=== PATIENT | female | born 1950 | race Hispanic/Latino ===

== ENCOUNTER 2021-01-19 07:43 | Day surgery (SDC) | payer MEDICARE ==
[2021-01-14 12:22] LABS: BASOPHILS % (AUTO) 0.4 % (0.0-5.0); EOSINOPHILS % (AUTO) 2.1 % (0.0-8.0); HEMATOCRIT 43.3 % (36-48); LYMPHOCYTES % (AUTO) 20.9 % (21.0-51.0); MEAN CORPUSCULAR HEMOGLOBIN 29.5 pg (27.0-33.0); MEAN CORPUSCULAR HGB CONC 32.8 g/dL (32.0-36.0); MEAN CORPUSCULAR VOLUME 89.8 fL (79-99); MONOCYTES % (AUTO) 7.9 % (3.0-13.0); NEUTROPHILS % (AUTO) 68.3 % (40.0-77.0); PLATELET COUNT (AUTO) 192 K/uL (130-400); RED BLOOD CELL COUNT(AUTO) 4.82 MIL/uL (4.00-5.50); RED CELL DISTRIBUTION WIDTH 12.6 % (11.0-15.5); WHITE BLOOD COUNT (AUTO) 4.7 K/uL (4.8-10.8)
[2021-01-14 12:39] LABS: ALBUMIN 3.9 g/dL (3.5-5.0); BILIRUBIN,TOTAL 0.7 mg/dL (0.2-1.0); CREATININE 0.8 mg/dL (0.5-1.5); POTASSIUM 4.1 mmol/L (3.5-5.1); TOTAL PROTEIN, SERUM 7.6 g/dL (6.0-8.3)
[2021-01-14 12:47] LABS: PROTHROMBIN TIME 10.9 SEC (9.6-11.6)
[2021-01-16 09:28] VITALS: BP 166/60
[~2021-01-19] VITALS: Ht 149.9 cm; Wt 68.7 kg
[2021-01-19] VITALS (19 sets, daily range): BP systolic 102–166; BP diastolic 58–91
[~2021-01-19 07:43] MED LIST: 0.9%NACL 1000ML 1,000 ML IV SCH; CELE200 PO; CLOP75TA14 PO; METO-409 PO; TELM40TA8 PO
[2021-01-19] MEDS ORDERED: LACTATED RINGERS 1000ML 1,000 ML IV ONE (08:48)
[2021-01-19] MEDS: CEFAZOLIN SODIUM 1 GM VIAL ONE ×2 (09:42→10:54)
[2021-01-19] MEDS ORDERED: DEXAMETHASONE SOD PHOSPHATE 10MG/ML 1ML VIAL ONE (10:29)
[2021-01-19] MEDS ORDERED: SUCCINYLCHOLINE 200MG/10ML SYR ONE ×2 (10:29→10:32)
[2021-01-19] MEDS ORDERED: PROPOFOL 10 MG/ML 20ML VIAL IV ONE (10:29)
[2021-01-19] MEDS ORDERED: LIDOCAINE PF 100MG/5ML (2%) SYRINGE 5ML ONE (10:29)
[2021-01-19] MEDS ORDERED: MIDAZOLAM HCL 1 MG/ML 2ML VIAL ONE (10:29)
[2021-01-19] MEDS ORDERED: FENTANYL CITRATE PF 50 MCG/1 ML 2ML VIAL ONE (10:30)
[2021-01-19] MEDS ORDERED: ONDANSETRON 4MG INJ ONE (10:30)
[2021-01-19] MEDS ORDERED: MEPERIDINE-PF 25 MG/ML SYG ONE (10:32)
[2021-01-19] MEDS ORDERED: BUPIVACAINE/PF 0.25% 30ML VIAL IJ ONE (10:37)
[2021-01-19] MEDS ORDERED: EPHEDRINE SULFATE 50 MG/ML AMPULE ONE (11:05)
[2021-01-19] MEDS ORDERED: ESMOLOL HCL 10 MG/ML 10 ML VIAL ONE (11:22)
[2021-01-30] MEDS ORDERED: CEFAZOLIN SODIUM 1 GM VIAL IVP SCH (06:00)
[2021-08-18] MEDS ORDERED: PYRI-12 PO (16:07)
[2021-08-18] MEDS ORDERED: GABA-529 PO (16:07)
[2021-08-18] MEDS ORDERED: METO100T14 PO (16:07)
[2021-08-18] MEDS ORDERED: CLOP75TA14 PO (16:07)
== END 2021-01-19 14:20 | disposition home or self-care (01) ==
LOC: DAH 07:43
PROVIDERS: ATTEND Student in an Organized Health Care Education/Training Program
DX: C50.911 Malignant neoplasm of unspecified site of right female breast (principal); Z20.822 Contact with and (suspected) exposure to COVID-19; I25.10 Atherosclerotic heart disease of native coronary artery without angina pectoris; I10 Essential (primary) hypertension; Z98.890 Other specified postprocedural states; Z85.3 Personal history of malignant neoplasm of breast; Z82.49 Family history of ischemic heart disease and other diseases of the circulatory system; Z83.3 Family history of diabetes mellitus; Z80.8 Family history of malignant neoplasm of other organs or systems; Z88.3 Allergy status to other anti-infective agents; Z90.710 Acquired absence of both cervix and uterus; Z79.01 Long term (current) use of anticoagulants
CPT/HCPCS: 36415; 36561; 71045 ×2; 77001; 80053; 85025; 85610; 85730; 93005; A4215 ×2; A4216; A4221 ×2; A4222 ×2; A4223 ×4; A4606 ×2; A4663 ×2; A4930 ×2; A6207; A6258; A6260; A6402; C1788; C9803; G0168; J0330 ×2; J0690; J1100; J1644; J2001; J2175; J2250; J2405; J2704; J3010; J3490 ×3; J7120 ×2; U0003; 77002

== ENCOUNTER 2021-08-19 06:08 | Observation (INO) | payer MEDICARE ==
[2021-08-17 12:57] LABS: BASOPHILS % (AUTO) 0.6 % (0.0-5.0); EOSINOPHILS % (AUTO) 3.9 % (0.0-8.0); HEMATOCRIT 35.8 % (36-48); LYMPHOCYTES % (AUTO) 22.4 % (21.0-51.0); MEAN CORPUSCULAR HEMOGLOBIN 31.3 pg (27.0-33.0); MEAN CORPUSCULAR HGB CONC 32.1 g/dL (32.0-36.0); MEAN CORPUSCULAR VOLUME 97.5 fL (79-99); MONOCYTES % (AUTO) 8.3 % (3.0-13.0); NEUTROPHILS % (AUTO) 64.4 % (40.0-77.0); PLATELET COUNT (AUTO) 214 K/uL (130-400); RED BLOOD CELL COUNT(AUTO) 3.67 MIL/uL (4.00-5.50); RED CELL DISTRIBUTION WIDTH 13.6 % (11.0-15.5); WHITE BLOOD COUNT (AUTO) 5.4 K/uL (4.8-10.8)
[2021-08-17 13:07] LABS: ALBUMIN 3.6 g/dL (3.5-5.0); BILIRUBIN,TOTAL 0.6 mg/dL (0.2-1.0); CREATININE 0.6 mg/dL (0.5-1.5); POTASSIUM 4.3 mmol/L (3.5-5.1); TOTAL PROTEIN, SERUM 6.9 g/dL (6.0-8.3)
[2021-08-17 13:14] LABS: PROTHROMBIN TIME 10.9 SEC (9.6-11.6)
[2021-08-17 13:16] LABS: PARTIAL THROMBOPLASTIN TIME 24.4 SEC (26.3-35.5)
[2021-08-18 15:52] VITALS: BP 177/68
[2021-08-19] VITALS (19 sets, daily range): BP systolic 73–120; BP diastolic 33–80
[~2021-08-19] VITALS: Ht 149.9 cm; Wt 65.0 kg
[~2021-08-19 06:08] MED LIST changes: +CEFAZOLIN SODIUM 1 GM VIAL IVP SCH; -CELE200 PO; +GABA-529 PO; +METO100T14 PO; +PYRI-12 PO; -TELM40TA8 PO
[2021-08-19] MEDS ORDERED: CEFAZOLIN SODIUM 1 GM VIAL ONE (07:20)
[2021-08-19] MEDS ORDERED: LACTATED RINGERS 1000ML 1,000 ML IV ONE (07:20)
[2021-08-19] MEDS ORDERED: ROPIVACAINE 0.5% 5MG/ML 30ML IJ ONE (13:44)
[2021-08-19] MEDS ORDERED: KETAMINE 50MG/ML SYRINGE 50 MG/ML DISP.SYRIN IV ONE (13:45)
[2021-08-19] MEDS ORDERED: SUCCINYLCHOLINE 200MG/10ML SYR ONE (13:47)
[2021-08-19] MEDS ORDERED: PROPOFOL 10 MG/ML 20ML VIAL IV ONE (13:47)
[2021-08-19] MEDS ORDERED: FENTANYL CITRATE PF 50 MCG/1 ML 2ML VIAL ONE (13:47)
[2021-08-19] MEDS ORDERED: MIDAZOLAM HCL 1 MG/ML 2ML VIAL ONE (13:48)
[2021-08-19] MEDS ORDERED: GLYCOPYRROLATE 1 MG/5 ML SYRINGE ONE (14:42)
[2021-08-19] MEDS ORDERED: MEPERIDINE-PF 25 MG/ML SYG ONE ×2 (17:15→17:21)
[2021-08-19] MEDS: TRAMADOL HCL 50 MG TABLET PO SCH (19:54)
[2021-08-19] MEDS: PYRIDOXINE HCL 50 MG TABLET PO SCH (20:47)
[2021-08-19] MEDS: GABAPENTIN 100 MG CAPSULE PO SCH (20:47)
[2021-08-20] MEDS: TRAMADOL HCL 50 MG TABLET PO SCH ×3 (01:30→13:58)
[2021-08-20 02:45] VITALS: BP 89/63
[2021-08-20 04:44] LABS: HEMATOCRIT 32.1 % (36-48); MEAN CORPUSCULAR HEMOGLOBIN 30.7 pg (27.0-33.0); MEAN CORPUSCULAR HGB CONC 32.4 g/dL (32.0-36.0); MEAN CORPUSCULAR VOLUME 94.7 fL (79-99); RED BLOOD CELL COUNT(AUTO) 3.39 MIL/uL (4.00-5.50); RED CELL DISTRIBUTION WIDTH 13.3 % (11.0-15.5); WHITE BLOOD COUNT (AUTO) 7.7 K/uL (4.8-10.8)
[2021-08-20 04:57] LABS: CREATININE 0.6 mg/dL (0.5-1.5); POTASSIUM 3.9 mmol/L (3.5-5.1)
[2021-08-20 07:38] VITALS: BP 101/65
[2021-08-20] MEDS: GABAPENTIN 100 MG CAPSULE PO SCH ×2 (08:26→13:58)
[2021-08-20] MEDS: PYRIDOXINE HCL 50 MG TABLET PO SCH ×2 (08:26→13:58)
[2021-08-20] MEDS ORDERED: CLOPIDOGREL 75MG TAB PO SCH (09:00)
[2021-08-20] MEDS ORDERED: METOPROLOL TARTRATE 50 MG TAB PO SCH (09:00)
[2021-08-20 11:22] VITALS: BP 96/64
[2021-08-20] MEDS ORDERED: PANTOPRAZOLE 40 MG TAB DR PO SCH (16:00)
== END 2021-08-20 17:15 | disposition home or self-care (01) ==
LOC: DAH 06:08 → WSH 06:09
PROVIDERS: ADMIT Student in an Organized Health Care Education/Training Program; ATTEND Student in an Organized Health Care Education/Training Program
DX: C50.911 Malignant neoplasm of unspecified site of right female breast (principal); Z20.822 Contact with and (suspected) exposure to COVID-19; I10 Essential (primary) hypertension; Z90.710 Acquired absence of both cervix and uterus; Z92.21 Personal history of antineoplastic chemotherapy; Z79.899 Other long term (current) drug therapy
CPT/HCPCS: 19307; 36415 ×2; 71045; 75801; 80048; 80053; 85025; 85027; 85610; 85730; 87635; 88307; 93005; 96360; 96361 ×2; A4215; A4221; A4222; A4223; A4600; A4663; A6260; A9541; C9803; G0378 ×22; J0330; J0690; J2175 ×2; J2250; J2704; J2795; J3010; J3490 ×2; J7120

== ENCOUNTER → 2021-10-05 | Outpatient (CLI) | payer MEDICARE, OTHER ==
[~2021-10-05] MED LIST changes: -0.9%NACL 1000ML 1,000 ML IV SCH; -CEFAZOLIN SODIUM 1 GM VIAL IVP SCH; -METO-409 PO
[2021-10-05 08:48] LABS: INR 1.04 (0.85-1.15); PROTHROMBIN TIME 11.3 SEC (9.6-11.6)
[2021-10-05 08:49] LABS: PARTIAL THROMBOPLASTIN TIME 24.6 SEC (26.3-35.5)
== END | disposition home or self-care (01) ==
LOC: RAH 08:06
PROVIDERS: ATTEND Student in an Organized Health Care Education/Training Program
DX: L76.34 Postprocedural seroma of skin and subcutaneous tissue following other procedure (principal); Z79.01 Long term (current) use of anticoagulants
CPT/HCPCS: 10005; 36415; 85610; 85730; 87071 ×2; 87205 ×2; 88108; 88305; 88341; 88342; C1729; 76942

== ENCOUNTER 2022-05-31 07:04 | Day surgery (SDC) | payer MEDICARE ==
[2022-05-27 12:22] LABS: BASOPHILS % (AUTO) 0.5 % (0.0-5.0); EOSINOPHILS % (AUTO) 4.2 % (0.0-8.0); MEAN CORPUSCULAR HEMOGLOBIN 30.2 pg (27.0-33.0); MEAN CORPUSCULAR HGB CONC 33.3 g/dL (32.0-36.0); MEAN CORPUSCULAR VOLUME 90.9 fL (79-99); MONOCYTES % (AUTO) 6.9 % (3.0-13.0); PLATELET COUNT (AUTO) 225 K/uL (130-400); RED BLOOD CELL COUNT(AUTO) 4.73 MIL/uL (4.00-5.50); RED CELL DISTRIBUTION WIDTH 12.3 % (11.0-15.5); WHITE BLOOD COUNT (AUTO) 5.7 K/uL (4.8-10.8)
[2022-05-27 12:41] LABS: ALBUMIN 3.8 g/dL (3.5-5.0); CREATININE 0.8 mg/dL (0.5-1.5); POTASSIUM 4.6 mmol/L (3.5-5.1); TOTAL PROTEIN, SERUM 7.6 g/dL (6.0-8.3)
[2022-05-28 14:36] VITALS: BP 119/40
[2022-05-31] VITALS (11 sets, daily range): BP systolic 139–165; BP diastolic 60–77
[~2022-05-31] VITALS: Ht 149.9 cm; Wt 60.8 kg
[~2022-05-31 07:04] MED LIST changes: +0.9% NACL 500ML IV.SOLN 500 ML IV SCH; +CEFAZOLIN SODIUM 1 GM VIAL IVP SCH; -CLOP75TA14 PO; +IBUP-2077 PO; +LETR2.5T7 PO; -METO100T14 PO; -PYRI-12 PO; +TELM40TA8 PO; +TRAM50TA4 PO
[2022-05-31] MEDS ORDERED: LACTATED RINGERS 1000ML 1,000 ML IV ONE (07:42)
[2022-05-31] MEDS ORDERED: LIDOCAINE PF 100MG/5ML (2%) SYRINGE 5ML ONE (08:13)
[2022-05-31] MEDS ORDERED: DEXAMETHASONE SOD PHOSPHATE 10MG/ML 1ML VIAL ONE (08:13)
[2022-05-31] MEDS ORDERED: SUCCINYLCHOLINE 200MG/10ML SYR ONE (08:13)
[2022-05-31] MEDS ORDERED: NEOSTIGMINE 5MG/5ML SYR IV ONE (08:14)
[2022-05-31] MEDS ORDERED: PROPOFOL 10 MG/ML 20ML VIAL IV ONE (08:14)
[2022-05-31] MEDS ORDERED: GLYCOPYRROLATE 1 MG/5 ML SYRINGE ONE (08:14)
[2022-05-31] MEDS ORDERED: ONDANSETRON 4MG INJ ONE (08:14)
[2022-05-31] MEDS ORDERED: ROCURONIUM 10MG/1ML SYR 10 MG/ML ML ONE (08:14)
[2022-05-31] MEDS ORDERED: MIDAZOLAM HCL 1 MG/ML 2ML VIAL ONE (08:14)
[2022-05-31] MEDS ORDERED: FENTANYL CITRATE PF 50 MCG/1 ML 2ML VIAL ONE (08:15)
[2022-05-31] MEDS ORDERED: LIDOCAINE HCL 1% MDV 50ML VIAL ONE (08:32)
[2022-05-31] MEDS ORDERED: BUPIVACAINE/PF 0.25% 30ML VIAL IJ ONE ×2 (08:32→08:45)
[2022-05-31] MEDS ORDERED: CEFAZOLIN SODIUM 2 GM VIAL IV ONE (08:35)
[2022-05-31] MEDS ORDERED: LIDOCAINE HCL 1% 20 ML VIAL INJ ONE (08:45)
== END 2022-05-31 10:25 | disposition home or self-care (01) ==
LOC: DAH 07:04
PROVIDERS: ATTEND Student in an Organized Health Care Education/Training Program
DX: C50.911 Malignant neoplasm of unspecified site of right female breast (principal); I10 Essential (primary) hypertension; Z98.890 Other specified postprocedural states; Z90.710 Acquired absence of both cervix and uterus; Z90.11 Acquired absence of right breast and nipple; Z82.49 Family history of ischemic heart disease and other diseases of the circulatory system; Z83.3 Family history of diabetes mellitus; Z80.8 Family history of malignant neoplasm of other organs or systems
CPT/HCPCS: 80053; 85025; 87426; 36415; 71045; 36590; A6260; A4663; A4606; J0690 ×2; J7120; J3010; J0330; J1100; J3490 ×3; J2001; J2250; J2704; J2405; A6219; G0168; A4930; A4215; A4223; A4222; A4221; A4600; J2710

== ENCOUNTER 2023-10-06 12:52 | Emergency (ER) | payer OTHER, MEDICARE ==
[~2023-10-06] VITALS: Ht 149.9 cm; Wt 61.2 kg
[~2023-10-06 12:52] MED LIST changes: -0.9% NACL 500ML IV.SOLN 500 ML IV SCH; -CEFAZOLIN SODIUM 1 GM VIAL IVP SCH
[2023-10-06 15:56] LABS: BASOPHILS # (AUTO) 0.01 K/uL (0.00-0.20); BASOPHILS % (AUTO) 0.2 % (0.0-5.0); HEMATOCRIT 47.1 % (36-48); IMMATURE GRANULOCYTE ABSOLUTE 0.02 K/uL (0-1); LYMPHOCYTES # (AUTO) 0.7 K/uL (1.0-4.8); LYMPHOCYTES % (AUTO) 15.8 % (21.0-51.0); MEAN CORPUSCULAR HEMOGLOBIN 29.5 pg (27.0-33.0); MEAN CORPUSCULAR HGB CONC 32.9 g/dL (32.0-36.0); MEAN CORPUSCULAR VOLUME 89.5 fL (79-99); MONOCYTES # (AUTO) 0.4 K/uL (0.1-1.0); MONOCYTES % (AUTO) 8.2 % (3.0-13.0); NEUTROPHILS # (AUTO) 3.5 K/uL (1.8-7.7); NEUTROPHILS % (AUTO) 75.4 % (40.0-77.0); PLATELET COUNT (AUTO) 151 K/uL (130-400); RED BLOOD CELL COUNT(AUTO) 5.26 MIL/uL (4.00-5.50); WHITE BLOOD COUNT (AUTO) 4.6 K/uL (4.8-10.8)
[2023-10-06 16:05] LABS: SARS-CoV-2, RNA, NAAT NEGATIVE SARS CoV-2 (NEGATIVE)
[2023-10-06 16:10] LABS: CREATININE 0.7 mg/dL (0.5-1.5); POTASSIUM 3.7 mmol/L (3.5-5.1)
[2023-10-06 16:14] LABS: INFLUENZA TYPE B Negative For Type B (NEGATIVE)
[2023-10-06 16:19] LABS: INFLUENZA TYPE A Positive For Type A (NEGATIVE)
[2023-10-06] MEDS ORDERED: OSEL75 PO (16:20)
[2023-10-06] MEDS ORDERED: AZIT250T9 PO ×2 (16:20)
[2023-10-06 16:54] VITALS: BP 135/84; PULSE 90; RESP 19; O2SAT 97
== END 2023-10-06 16:56 | disposition home or self-care (01) ==
LOC: EDH 12:52
DX: J10.1 Influenza due to other identified influenza virus with other respiratory manifestations (principal); I10 Essential (primary) hypertension; Z79.1 Long term (current) use of non-steroidal anti-inflammatories (NSAID); Z79.899 Other long term (current) drug therapy; Z88.8 Allergy status to other drugs, medicaments and biological substances; Z91.041 Radiographic dye allergy status; Z20.822 Contact with and (suspected) exposure to COVID-19
CPT/HCPCS: 99284; 71045; 87635; 80048; 85025; 87804 ×2; 36415; C9803

== ENCOUNTER 2023-10-20 09:59 | Emergency (ER) | payer OTHER, MEDICARE ==
[~2023-10-20] VITALS: Ht 149.9 cm; Wt 60.8 kg
[~2023-10-20 09:59] MED LIST changes: +AZIT250T9 PO; +OSEL75 PO
[2023-10-20 10:35] LABS: BASOPHILS # (AUTO) 0.03 K/uL (0.00-0.20); BASOPHILS % (AUTO) 0.3 % (0.0-5.0); EOSINOPHILS # (AUTO) 0.03 K/uL (0.00-0.70); EOSINOPHILS % (AUTO) 0.3 % (0.0-8.0); HEMATOCRIT 48.5 % (36-48); IMMATURE GRANULOCYTE ABSOLUTE 0.03 K/uL (0-1); LYMPHOCYTES # (AUTO) 1.1 K/uL (1.0-4.8); LYMPHOCYTES % (AUTO) 11.7 % (21.0-51.0); MEAN CORPUSCULAR HEMOGLOBIN 29.4 pg (27.0-33.0); MEAN CORPUSCULAR HGB CONC 32.8 g/dL (32.0-36.0); MEAN CORPUSCULAR VOLUME 89.6 fL (79-99); MONOCYTES # (AUTO) 0.5 K/uL (0.1-1.0); MONOCYTES % (AUTO) 4.9 % (3.0-13.0); NEUTROPHILS # (AUTO) 7.5 K/uL (1.8-7.7); NEUTROPHILS % (AUTO) 82.5 % (40.0-77.0); PLATELET COUNT (AUTO) 231 K/uL (130-400); RED BLOOD CELL COUNT(AUTO) 5.41 MIL/uL (4.00-5.50); RED CELL DISTRIBUTION WIDTH 13.7 % (11.0-15.5); WHITE BLOOD COUNT (AUTO) 9.2 K/uL (4.8-10.8)
[2023-10-20 10:39] LABS: CREATININE 0.9 mg/dL (0.5-1.5); POTASSIUM 4.5 mmol/L (3.5-5.1)
[2023-10-20 10:42] LABS: ADD UA MICROSCOPIC YES; APPEARANCE,URINE CLEAR (CLEAR); BILIRUBIN,URINE NEGATIVE (NEGATIVE); COLOR,URINE LIGHT-YELLOW (YELLOW); GLUCOSE, URINE (UA) >=1000 mg/dL (NEGATIVE); KETONES,URINE 20 mg/dL (NEGATIVE); LEUKOCYTE ESTERASE ,URINE NEGATIVE Leu/uL (NEGATIVE); NITRATE,URINE NEGATIVE (NEGATIVE); OCCULT BLOOD,URINE SMALL (NEGATIVE); PH,URINE 6.5 (5.0-8.0); PROTEIN,URINE 50 mg/dL (NEGATIVE); UROBILINOGEN,URINE 0.2 mg/dL (0.2-1.0)
[2023-10-20 10:43] LABS: ALBUMIN 3.7 g/dL (3.5-5.0); BILIRUBIN,TOTAL 0.8 mg/dL (0.2-1.0); TOTAL PROTEIN, SERUM 7.8 g/dL (6.0-8.3)
[2023-10-20 10:45] LABS: MUCUS,URINE RARE LPF (None Seen); SQUAMOUS EPITHELIAL CELL,UR RARE /HPF (0-2)
[2023-10-20] MEDS ORDERED: ACET-2893 PO (12:41)
[2023-10-20 13:17] VITALS: BP 145/86; PULSE 78; RESP 18; O2SAT 98
== END 2023-10-20 13:17 | disposition home or self-care (01) ==
LOC: EDH 09:59
DX: K57.30 Diverticulosis of large intestine without perforation or abscess without bleeding (principal); K46.9 Unspecified abdominal hernia without obstruction or gangrene; I10 Essential (primary) hypertension; Z79.899 Other long term (current) drug therapy; Z98.890 Other specified postprocedural states; Z90.710 Acquired absence of both cervix and uterus; Z88.8 Allergy status to other drugs, medicaments and biological substances
CPT/HCPCS: 36415; 74176; 80053; 81001; 83605; 83690; 85025